=== PATIENT | female | born 1995 | race Two or more races ===

== ENCOUNTER 2018-10-17 14:34 | Emergency (ER) | payer OTHER ==
[~2018-10-17] VITALS: Ht 154.9 cm; Wt 56.7 kg
[2018-10-18] MEDS ORDERED: PEPCID40 MG PO (06:26)
[2018-10-18] MEDS ORDERED: PHENERGAN25 MG PO (06:26)
== END 2018-10-18 06:18 | disposition home or self-care (01) ==
LOC: ER 14:34
DX: K29.70 Gastritis, unspecified, without bleeding (principal)